=== PATIENT | female | born 1955 ===

== ENCOUNTER 2023-05-29 05:34 | Outpatient (CLI) | payer MEDICARE, OTHER ==
[~2023-05-29] VITALS: Ht 157.5 cm; Wt 61.2 kg
[2023-05-29] MEDS ORDERED: LISI20TA26 PO (12:20)
[2023-05-29] MEDS ORDERED: TRZ50T PO (12:20)
[2023-05-29] MEDS ORDERED: DULO60CA59 PO (12:20)
[2023-05-29] MEDS ORDERED: ESTR1GEL9 TD (12:20)
[2023-05-29] MEDS ORDERED: FOLI0.4T6 PO (12:20)
== END 2023-05-29 15:00 | disposition home or self-care (01) ==
LOC: PREOP 05:34
PROVIDERS: ATTEND Otolaryngology Otolaryngology/Facial Plastic Surgery
DX: Z01.818 Encounter for other preprocedural examination (principal)